=== PATIENT | female | born 1965 | race Caucasian/White ===

== ENCOUNTER 2018-01-31 08:50 | Inpatient (IN) | payer MEDICAID ==
[~2018-01-31] VITALS: Ht 165.1 cm; Wt 77.4 kg
[~2018-01-31 08:50] MED LIST: CHLO25CA2 PO; HYDR12.524 PO; [UNRECOGNIZED DRUG - CODE] PO
[2018-01-31] MEDS ORDERED: OCTREOTIDE ACETATE 100 MCG in SODIUM CHL 0.9% 50 ML IV ONE (10:00)
[2018-01-31] MEDS ORDERED: PANTOPRAZOLE 80 MG in SODIUM CHL 0.9% 60 ML IV ONE (10:00)
[2018-01-31] MEDS ORDERED: PIPERACILLIN-TAZOB 3.375GM 100 ML IV ONE (10:00)
[2018-01-31 10:29] LABS: Basophils # (auto) 0.1 uL; Eosinophils # (auto) 0.3 uL; Monocytes # (auto) 1.1 uL; Monocytes % (auto) 13.8 % (0.0-12.0); Nucleated Red Blood Cells % 0.1 %; Red Blood Cells 2.17 10^6/uL (4.0-5.20)
[2018-01-31 10:32] LABS: Basophils % (auto) 1.5 % (0.0-2.0); Eosinophils % (auto) 4.1 % (0.0-7.0); Hematocrit 26.6 % (36.0-46.0); Hemoglobin 9.1 g/dL (12.2-16.2); Lymphocytes # (auto) 0.9 uL; Lymphocytes % (auto) 11.1 % (10.0-50.0); Mean Corpuscular Hemoglobin 42.2 pg (28.0-32.0); Mean Corpuscular Hgb Conc. 34.3 g/dL (32.0-36.0); Neutrophils # (auto) 5.7 uL; Neutrophils % (auto) 69.5 % (37.0-80.0); Platelet Count (auto) 110 10^3/uL (140-450); Red Cell Distribution Width 16.1 % (11.8-14.3); White Blood Cell 8.2 10^3/uL (4.4-10.8)
[2018-01-31 10:51] LABS: Albumin 2.2 g/dL (3.4-5.0); Calcium 8.2 mg/dL (8.5-10.1); Potassium 3.1 mmol/L (3.5-5.1)
[2018-01-31 10:55] LABS: Bilirubin, Total 5.9 mg/dL (0.2-1.0); Total Protein 6.5 g/dL (6.4-8.2)
[2018-01-31] MEDS ORDERED: MORPHINE SULFATE 4 MG/ML SYR/VIAL IV PRN (14:00)
[2018-01-31] MEDS ORDERED: NITROGLYCERIN 0.4 MG SL TAB SL PRN (14:00)
[2018-01-31] MEDS ORDERED: SODIUM CHLORIDE LOCK 10 ML ONE (14:24)
[2018-01-31] MEDS ORDERED: diphenhdrAMINE HCL 50 MG/1 ML VL ONE (14:25)
[2018-01-31] MEDS ORDERED: LIDOCAINE VISCOUS 2% 15ML UD ONE (14:26)
[2018-01-31] MEDS ORDERED: FOLIC ACID 1 MG in D5W 5% 50 ML INJ ONE (14:30)
[2018-01-31] MEDS ORDERED: THIAMINE 100mg/ml INJ (200mg/2ml VIAL) IV ONE (14:30)
[2018-01-31] MEDS: fentaNYL CITRATE 100 MCG/2 ML VL ONE ×2 (14:35→14:43)
[2018-01-31] MEDS: MIDAZOLAM HCL 5 MG/ML-1ML VIAL ONE ×2 (14:35→14:43)
[2018-01-31 14:59] LABS: INR 1.54 (0.9-1.15); Prothrombin Time 16.1 sec (9.27-12.13)
[2018-01-31] MEDS: OCTREOTIDE ACETATE 500 MCG in SODIUM CHL 0.9% 99 ML IV SCH (17:36)
[2018-01-31] MEDS: PANTOPRAZOLE 40 MG/10 ML VIAL IV SCH (22:11)
--- NOTE | 2018-01-31 22:36 | NUR ---
REPORT RECEIVED FROM JULIET JOHNSON AWAITING FOR PATIENT TRANSPORT FROM ER
[2018-01-31] MEDS ORDERED: POTASSIUM CHL 20MEQ/100ML 100 ML IV ONE (22:45)
[2018-01-31 22:50] VITALS: BP 110/59
[2018-01-31 23:00] VITALS: BP 110/59
--- NOTE | 2018-01-31 23:15 | NUR ---
Admit to [facility] admitted to [facility] via gurney on torpedoman's mate, and portable 02. Patient transfered to bed, connected to unit monitoring and oxygen, and weighed by bedscale. Patient oriented to Lauren paniagua RN, unit, room, bed, and unit policies regarding patient care and visiting hours. All questions and concerns addressed, patient verbalized understanding. NOTE: Patient's significant other Richard at bedside.Patient agrees to call PRN.
[2018-02-01] VITALS (12 sets, daily range): BP systolic 94–122; BP diastolic 42–76
[2018-02-01] MEDS ORDERED: OCTREOTIDE ACETATE 500 MCG/ML VL ONE (00:14)
[2018-02-01] MEDS: OCTREOTIDE ACETATE 500 MCG in SODIUM CHL 0.9% 99 ML IV SCH (00:45)
[2018-02-01] MEDS ORDERED: LACT10SO3 PO (01:05)
[2018-02-01] MEDS ORDERED: CEPH500C PO (01:05)
[2018-02-01] MEDS: LACTULOSE 20Gm/30ML SOLN PO SCH ×3 (05:20→17:56)
--- NOTE | 2018-02-01 07:27 | NUR ---
END OF SHIFT PATIENT RESTING IN BED NO S/S OF DISTRESS NOTED CARE ENDORSED TO DAY SHIFT RN PATIENT REMAINED STABLE THROUGH NIGHT
--- NOTE | 2018-02-01 08:00 | NUR ---
Opening Shift Note Assumed care of patient @ 7;30, awake and alert. No S/S of distress/SOB or pain. LT AC IV out. Bed locked on low position, side rails up x2, bed alarms on at all times, call ma within reach, instructed on POC and to call for assist PRN, will continue to monitor for changes Q1hr and PRN.
--- NOTE | 2018-02-01 09:01 | NUR ---
Laboratory report still pending, plan to call lab and follow-up H and H.
[2018-02-01] MEDS: FOLIC ACID 1 MG in D5W 5% 50 ML IV SCH (09:26)
[2018-02-01] MEDS: cefTRIAXone 1GM/50ML D5W 50 ML IV SCH (09:26)
[2018-02-01] MEDS: THIAMINE 100mg/ml INJ (200mg/2ml VIAL) IV SCH (09:27)
[2018-02-01] MEDS: PANTOPRAZOLE 40 MG/10 ML VIAL IV SCH ×2 (09:27→22:43)
--- NOTE | 2018-02-01 09:56 | NUR ---
Dr Moya at bedside, updated on patient's status. Made aware lab report still pending. Will carry out new orders.
--- NOTE | 2018-02-01 10:27 | NUR ---
Laboratory report still pending, called lab and spoke to Daksha. Per Daksha they are still working on it.
--- NOTE | 2018-02-01 10:50 | NUR ---
Tube Closing Machine Operator at bedside drawing blood.
--- NOTE | 2018-02-01 11:22 | NUR ---
Laboratory result still pending. Will follow-up.
[2018-02-01 11:54] LABS: Basophils # (auto) 0.1 uL; Eosinophils # (auto) 0.4 uL; Lymphocytes # (auto) 1.2 uL; Lymphocytes % (auto) 21.9 % (10.0-50.0); Mean Corpuscular Hemoglobin 40.9 pg (28.0-32.0); Mean Corpuscular Hgb Conc. 32.1 g/dL (32.0-36.0); Neutrophils # (auto) 3.1 uL
[2018-02-01 11:56] LABS: Anion Gap 9 (5-15); BUN/Creatinine Ratio 18.1; Basophils % (auto) 2.1 % (0.0-2.0); Blood Urea Nitrogen 15 mg/dL (7-18); Calcium 6.9 mg/dL (8.5-10.1); Carbon Dioxide 22 mmol/L (21-32); Chloride 107 mmol/L (98-107); Eosinophils % (auto) 6.8 % (0.0-7.0); GFR African American 94 mL/min; GFR Non-African American 77 mL/min; Glucose 115 mg/dL (74-106); Hematocrit 20.9 % (36.0-46.0); Mean Corpuscular Volume 127.2 fL (80.0-100.0); Monocytes # (auto) 0.7 uL; Monocytes % (auto) 13.3 % (0.0-12.0); Neutrophils % (auto) 55.9 % (37.0-80.0); Platelet Count (auto) 94 10^3/uL (140-450); Potassium 3.6 mmol/L (3.5-5.1); Red Blood Cells 1.64 10^6/uL (4.0-5.20); Red Cell Distribution Width 16.5 % (11.8-14.3); Sodium 138 mmol/L (136-145); White Blood Cell 5.6 10^3/uL (4.4-10.8)
[2018-02-01 12:01] LABS: Hemoglobin 6.7 g/dL (12.2-16.2)
--- NOTE | 2018-02-01 12:07 | NUR ---
Hemoglobin 6.7. Dr Gee informed. Received telephone order to transfuse 2 units of PRBC. Read back and verified. Will facilitate.
--- NOTE | 2018-02-01 13:28 | NUR ---
Started transfusion of 1 unit PRBC. Will continue to monitor for any blood transfusion reaction.
--- NOTE | 2018-02-01 15:50 | NUR ---
Patient had moderate amount of dark liquid stool. Will continue to monitor.
--- NOTE | 2018-02-01 17:03 | NUR ---
Started blood transfusion of 2nd unit PRBC. Will continue to monitor for any transfusion reaction.
--- NOTE | 2018-02-01 21:56 | NUR ---
213 lab came, asked to return in 1 hour for H&H, pt stable, no reactions.
[2018-02-01 22:49] LABS: Hematocrit 23.5 % (36.0-46.0)
--- NOTE | 2018-02-01 23:24 | NUR ---
H&H, 8.0 and 23.5, WNL. Pt stable.
[2018-02-02] MEDS: LACTULOSE 20Gm/30ML SOLN PO SCH ×6 (00:55→23:36)
[2018-02-02 04:00] VITALS: BP 111/68
[2018-02-02] MEDS: LEVOTHYROXINE SODIUM 100 MCG TAB PO SCH (06:40)
[2018-02-02 08:00] VITALS: BP 107/60
--- NOTE | 2018-02-02 08:00 | NUR ---
Opening Shift Note Assumed care of patient, awake and alert. No S/S of distress/SOB or pain. See interventions for complete assessment. Bed locked on low position, side rails up x2, bed alarm on at all times, call ma within reach, instructed on POC and to call for assist PRN, Sung Ramos at bedside, will continue to monitor for changes Q1hr and PRN.
[2018-02-02 08:05] LABS: Urine Bacteria NONE SEEN /hpf (None Seen); Urine Blood Negative /uL (Negative); Urine Specific Gravity 1.008 (1.001-1.035); Urine WBC <1 /hpf (0 - 5)
--- NOTE | 2018-02-02 09:35 | NUR ---
Patient had black stool moderate in amount. Will continue to monitor.
[2018-02-02] MEDS: PANTOPRAZOLE 40 MG/10 ML VIAL IV SCH ×2 (09:54→21:17)
[2018-02-02] MEDS: cefTRIAXone 1GM/50ML D5W 50 ML IV SCH (09:54)
[2018-02-02] MEDS: THIAMINE 100mg/ml INJ (200mg/2ml VIAL) IV SCH (09:54)
[2018-02-02] MEDS: FOLIC ACID 1 MG in D5W 5% 50 ML IV SCH (10:04)
[2018-02-02 11:50] VITALS: BP 115/59
--- NOTE | 2018-02-02 12:10 | NUR ---
Dr Moya at bedside, updated on patient's status. Made aware patient had moderate amount of dark stool this morning.
--- NOTE | 2018-02-02 13:00 | NUR ---
Paged Dr Gee and called back. Updated on patient's status. Received telephone order to transfer patient Med Surge floor.
--- NOTE | 2018-02-02 13:56 | NUR ---
assessment Per consult HX of ETOH abuse. Patient has been offered resources for ETOH rehabs and AA. Patient does not need at this time. Addendum: 02/07/18 at 0857 by Ivonne Harrison Amended: Links added.
[2018-02-02] MEDS: MORPHINE SULFATE 4 MG/ML SYR/VIAL IV PRN (14:42)
[2018-02-02] MEDS: ONDANSETRON HCL 4 MG/2 ML VIAL IV PRN (14:42)
--- NOTE | 2018-02-02 14:48 | NUR ---
Patient verbalized feeling nauseous, complains of abdominal pain 08/15. Zofran PRN and Morphine PRN given. Will continue to monitor.
[2018-02-02 16:01] VITALS: BP 114/65
[2018-02-02] MEDS: SUCRALFATE 1 GM TAB PO SCH ×2 (17:00→21:17)
--- NOTE | 2018-02-02 18:50 | NUR ---
NORA RODRIGUEZ transferred to Med Surg floor via hospital bed. All patient personal belongings including two cellphone and laptop transferred with patient to receiving floor. Patient care transferred to Bisi JOHNSON.
--- NOTE | 2018-02-02 18:57 | NUR ---
Assumed care of patient, patient A&O x4, respirations even and unlabored, patient c/o mild pain and nausea, will medicate as prescribed by MD. Patient oriented to room.Bed at lowest position and call light within reach. Instructed on plan of care. Significant other at bedside. Care endorsed to NOC RN.
--- NOTE | 2018-02-02 19:05 | NUR ---
Opening Shift Note Assumed care of patient, awake and alert. Family member at bedside. No S/S of distress/SOB PT complained of pain and nausea informed pain and nausea meds are not due at the time, offered cold packs, pt refused. Instructed on POC and to call for assist PRN, will continue to monitor for changes Q1hr and PRN. HOB elevated, bed locked and lowest position, call light within reach,
--- NOTE | 2018-02-02 20:15 | NUR ---
PT COMPLAINT Pt's family member complained in regards not being able to stay over. Informed due to visiting hours and pt having a roommate he is unable to stay. PT family member would like to speak with the charge in regards to switching rooms d/t roomate dx. Inform charge histotechnologist hedge fund principal spoke with family members and address concerns. pt family member understood.
--- NOTE | 2018-02-02 20:55 | NUR ---
PT COMPLAINT PT complaint about being moved again, informed that charge account identification clerk is aware but no beds available. Informed will continue to monitor pt and attempt to accommodate but unfortunately unable to move pt at this time
[2018-02-02 22:06] VITALS: BP 126/69
--- NOTE | 2018-02-02 22:40 | NUR ---
TELEPHONE ORDER READ BACK PT requesting sleeping aid Restoril 15 mg PO HS prn will continue to monitor pt
[2018-02-02] MEDS: TEMAZEPAM 15 MG CAP PO PRN (23:36)
[2018-02-03] MEDS: MORPHINE SULFATE 4 MG/ML SYR/VIAL IV PRN ×2 (04:35→22:13)
[2018-02-03] MEDS: ONDANSETRON HCL 4 MG/2 ML VIAL IV PRN (04:35)
[2018-02-03 05:22] VITALS: BP 106/61
--- NOTE | 2018-02-03 07:19 | NUR ---
CLOSING NOTE Report endorsed to day RN pt resting no s/sx's of distress
[2018-02-03] MEDS: LACTULOSE 20Gm/30ML SOLN PO SCH ×3 (07:29→18:00)
[2018-02-03] MEDS: SUCRALFATE 1 GM TAB PO SCH ×4 (07:29→22:08)
[2018-02-03] MEDS: LEVOTHYROXINE SODIUM 100 MCG TAB PO SCH (07:29)
--- NOTE | 2018-02-03 07:50 | NUR ---
Opening Shift Note Assumed care of patient, awake, alert and oriented x4 . No S/S of distress/SOB or pain. Instructed on POC and to call for assistance PRN, will continue to monitor for changes Q1hr and PRN.
[2018-02-03 08:09] LABS: Basophils # (auto) 0.1 uL; Eosinophils # (auto) 0.3 uL; Hemoglobin 8.6 g/dL (12.2-16.2); Monocytes # (auto) 0.7 uL
[2018-02-03 08:13] LABS: Basophils % (auto) 1.5 % (0.0-2.0); Eosinophils % (auto) 5.9 % (0.0-7.0); Hematocrit 25.1 % (36.0-46.0); Lymphocytes % (auto) 19.3 % (10.0-50.0); Mean Corpuscular Hemoglobin 37.8 pg (28.0-32.0); Mean Corpuscular Hgb Conc. 34.1 g/dL (32.0-36.0); Monocytes % (auto) 13.5 % (0.0-12.0); Neutrophils # (auto) 3.1 uL; Neutrophils % (auto) 59.8 % (37.0-80.0); Nucleated Red Blood Cells % 0.1 %; Platelet Count (auto) 76 10^3/uL (140-450); Red Blood Cells 2.27 10^6/uL (4.0-5.20); White Blood Cell 5.2 10^3/uL (4.4-10.8)
[2018-02-03 08:20] LABS: Mean Corpuscular Volume 110.3 fL (80.0-100.0)
[2018-02-03 09:00] VITALS: BP 106/63
--- NOTE | 2018-02-03 09:05 | NUR ---
Patient signed AMA form to smoke.
[2018-02-03] MEDS: cefTRIAXone 1GM/50ML D5W 50 ML IV SCH (10:09)
[2018-02-03] MEDS: THIAMINE 100mg/ml INJ (200mg/2ml VIAL) IV SCH (10:09)
[2018-02-03] MEDS: PANTOPRAZOLE 40 MG/10 ML VIAL IV SCH ×2 (10:09→22:08)
[2018-02-03] MEDS: FOLIC ACID 1 MG in D5W 5% 50 ML IV SCH (11:29)
[2018-02-03 13:00] VITALS: BP 114/65
--- NOTE | 2018-02-03 14:00 | NUR ---
PT REPORTS THAT SHE IS DOING WELL AND DOES NOT NEED P.T. INTERVENTION.
[2018-02-03 18:08] VITALS: BP 113/67
--- NOTE | 2018-02-03 19:00 | NUR ---
END OF SHIFT NOTE PATIENT IS RESTING COMFORTABLY IN BED, NO C/O PAIN. NO S/S OF DISTRESS NOTED OR STATED. CARE ENDORSED TO NOC RN.
--- NOTE | 2018-02-03 19:20 | NUR ---
open shift note Patient alert and oriented x4, on room air. Does not use assistive devices at baseline. Patient is ambulatory with stand by assistance for safety. Patient states 5/10 pain. bed is locked in lowest position with side rails up x2. call light is within reach. POC discussed and questions answered. Will continue to round Q1hr and PRN.
[2018-02-03] MEDS: TEMAZEPAM 15 MG CAP PO PRN (22:09)
[2018-02-04] MEDS: LACTULOSE 20Gm/30ML SOLN PO SCH ×3 (00:22→11:55)
[2018-02-04 05:27] VITALS: BP 108/68
[2018-02-04] MEDS: SUCRALFATE 1 GM TAB PO SCH ×2 (06:14→11:55)
[2018-02-04] MEDS: LEVOTHYROXINE SODIUM 100 MCG TAB PO SCH (06:14)
[2018-02-04] MEDS: MORPHINE SULFATE 4 MG/ML SYR/VIAL IV PRN (06:25)
[2018-02-04 06:30] LABS: Basophils # (auto) 0.1 uL; Eosinophils # (auto) 0.4 uL; Monocytes # (auto) 0.7 uL; Neutrophils # (auto) 2.8 uL
[2018-02-04 06:31] LABS: Basophils % (auto) 2.2 % (0.0-2.0); Eosinophils % (auto) 7.4 % (0.0-7.0); Hematocrit 24.4 % (36.0-46.0); Hemoglobin 8.5 g/dL (12.2-16.2); Lymphocytes % (auto) 20.5 % (10.0-50.0); Mean Corpuscular Hemoglobin 38.6 pg (28.0-32.0); Mean Corpuscular Hgb Conc. 34.7 g/dL (32.0-36.0); Mean Corpuscular Volume 111.3 fL (80.0-100.0); Monocytes % (auto) 14.3 % (0.0-12.0); Neutrophils % (auto) 55.6 % (37.0-80.0); Platelet Count (auto) 73 10^3/uL (140-450); Red Blood Cells 2.19 10^6/uL (4.0-5.20)
[2018-02-04 06:37] LABS: Albumin 1.8 g/dL (3.4-5.0); BUN/Creatinine Ratio 12.1; Calcium 6.9 mg/dL (8.5-10.1); Magnesium 1.4 mg/dL (1.6-2.6); Potassium 3.2 mmol/L (3.5-5.1)
[2018-02-04 06:39] LABS: Bilirubin, Total 3.9 mg/dL (0.2-1.0); Total Protein 5.3 g/dL (6.4-8.2)
[2018-02-04 06:40] LABS: Red Cell Distribution Width 23.7 % (11.8-14.3)
[2018-02-04 06:41] LABS: INR 1.48 (0.9-1.15); Prothrombin Time 15.5 sec (9.27-12.13)
--- NOTE | 2018-02-04 07:30 | NUR ---
Opening Shift Note Assumed care of patient, awake and alert. No S/S of distress/SOB or pain. Instructed on POC and to call for assistance PRN, will continue to monitor for changes Q1hr and PRN.
[2018-02-04 08:00] VITALS: BP 116/66
--- NOTE | 2018-02-04 08:00 | NUR ---
Patient's boyfriend (YUE) at bedside.
[2018-02-04 09:00] VITALS: BP 116/66
[2018-02-04] MEDS: PANTOPRAZOLE 40 MG/10 ML VIAL IV SCH (10:13)
[2018-02-04] MEDS: FOLIC ACID 1 MG in D5W 5% 50 ML IV SCH (10:13)
[2018-02-04] MEDS: THIAMINE 100mg/ml INJ (200mg/2ml VIAL) IV SCH (10:30)
--- NOTE | 2018-02-04 11:20 | NUR ---
IV leaking: Assessed IV site, catheter is bent and partially sticking out, site is leaking there is no bleeding, no redness and no pain. Removed IV. Will notify MD. Patient tolerated well. Applied sterile gauze and gently wrapped with Coban. Will continue to monitor.
--- NOTE | 2018-02-04 16:30 | NUR ---
Patient's significant other informed me that patient is feeling very bloated and suggested i get the doctor to assess her before she leaves the hospital. I assessed the patient and her abdomen, abdomen shows distention, slightly hard and no c/o of pain. Notified Dr. Gee, he stated, that is something she can discuss with her primary doctor and that she has been discharged.
--- NOTE | 2018-02-04 16:50 | NUR ---
Discharge instructions given as ordered. Encourage to follow up with PMD as instructed. All questions and concerns addressed. Patient verbalized understanding. Patient taken to vehicle via wheelchair with all personal belongings, accompanied by family member. No distress noted at time of departure.
[2018-02-04 17:09] VITALS: BP 118/57
== END 2018-02-04 16:45 | disposition home or self-care (01) | DRG 280 ==
LOC: ER 08:50 → EDBD 08:50 → OVERFLOW 13:48 → DOU IN ICU 22:56 → TELE-WESTW 02-02 18:57 → WEST WING 02-03 00:24
PROVIDERS: ADMIT Nurse Practitioner Acute Care; ATTEND Internal Medicine Pulmonary Disease
PROC: 30233N1 Transfusion of Nonautologous Red Blood Cells into Peripheral Vein, Percutaneous Approach (ICD-10-PCS; 2018-01-31)
PROC: 06L38CZ Occlusion of Esophageal Vein with Extraluminal Device, Via Natural or Artificial Opening Endoscopic (ICD-10-PCS; principal; 2018-01-31 14:32)
DX: K70.30 Alcoholic cirrhosis of liver without ascites (principal); I85.11 Secondary esophageal varices with bleeding; E43 Unspecified severe protein-calorie malnutrition; K26.4 Chronic or unspecified duodenal ulcer with hemorrhage; E44.0 Moderate protein-calorie malnutrition; K29.71 Gastritis, unspecified, with bleeding; K76.6 Portal hypertension; D69.6 Thrombocytopenia, unspecified; E03.9 Hypothyroidism, unspecified; D53.9 Nutritional anemia, unspecified; E87.6 Hypokalemia; Z83.3 Family history of diabetes mellitus; Z90.710 Acquired absence of both cervix and uterus; Z88.1 Allergy status to other antibiotic agents; Z88.2 Allergy status to sulfonamides; Z88.8 Allergy status to other drugs, medicaments and biological substances
CPT/HCPCS: 36415; 36430; 71045; 74176; 80048; 80053; 81001; 82140; 83735; 84443; 85014; 85018; 85025; 85610; 85730; 86850; 86900; 86901; 86920; 87081; 96365; 96367; C9113; G0378; J0696; J2250; J2405; J2543; J3480; J7060